=== PATIENT | female | born 1955 | race Two or more races ===

== ENCOUNTER 2019-12-27 13:34 | Outpatient (REF) | payer MEDICARE, MEDICAID, SELFPAY | END 2019-12-27 13:35 | disposition home or self-care (01) | LOC: HO.LAB 13:34 | PROVIDERS: PCP Internal Medicine; Visit Provider Internal Medicine | DX: Z20.828 Contact with and (suspected) exposure to other viral communicable diseases (principal) | CPT/HCPCS: C9803; U0003 ==

== ENCOUNTER 2020-02-15 14:03 | Outpatient (REF) | payer MEDICARE, MEDICAID, SELFPAY | END 2020-02-15 14:04 | disposition home or self-care (01) | LOC: HO.LAB 14:03 | PROVIDERS: Visit Provider Internal Medicine | DX: Z20.828 Contact with and (suspected) exposure to other viral communicable diseases (principal) | CPT/HCPCS: 36415; C9803; U0003 ==

== ENCOUNTER 2021-02-26 09:22 | Outpatient (REF) | payer MEDICARE, MEDICAID, SELFPAY ==
[2021-02-26 11:13] LABS: Estimated Average Glucose 237 mg/dL; Hemoglobin A1c % 9.9 %
[2021-02-26 12:27] LABS: Free T4 (Free Thyroxine) 1.12 ng/dL (0.71-1.85); Thyroid Stimulating Hormone 0.19 uIU/mL (0.32-4.0)
[2021-02-26 12:35] LABS: Alanine Aminotransferase 18 U/L (0-31); Albumin Level 3.9 g/dL (3.5-5.0); Alkaline Phosphatase 143 U/L (39-117); Anion Gap 16 (12-20); Aspartate Amino Transferase 16 U/L (5-31); Bilirubin Total 0.3 mg/dL (0.0-1.0); Blood Urea Nitrogen 12 mg/dL (9-16); Calcium 9.8 mg/dL (8.4-10.2); Carbon Dioxide 26 mmol/L (22-29); Chloride 97 mmol/L (96-108); Cholesterol 233 mg/dL; Estimated Glomerular Filt Rate 59; HDL Cholesterol 46 mg/dL; LDL Cholesterol Calculated 162 mg/dl; Potassium 4.1 mmol/L (3.3-5.1); Sodium 135 mmol/L (135-145); Total Protein 7.7 g/dL (6.5-8.0); Triglycerides 126 mg/dL
[2021-02-26 13:51] LABS: Glucose Fasting 464 mg/dL (60-99)
== END 2021-02-26 09:23 | disposition home or self-care (01) ==
LOC: HO.MANLDS 09:22
PROVIDERS: PCP Internal Medicine; Visit Provider Internal Medicine
DX: E03.9 Hypothyroidism, unspecified (principal); E11.9 Type 2 diabetes mellitus without complications
CPT/HCPCS: 36415; 80053; 80061; 83036; 84439; 84443

== ENCOUNTER 2021-02-27 13:47 | Outpatient (REF) | payer MEDICARE, MEDICAID, SELFPAY ==
[2021-02-27 18:35] LABS: Creatinine Urine 30.21 mg/dL; Microalbumin Urine < 5.0 mg/L
== END 2021-02-27 13:48 | disposition home or self-care (01) ==
LOC: HO.MANLDS 13:47
PROVIDERS: PCP Internal Medicine; Visit Provider Internal Medicine
DX: E03.9 Hypothyroidism, unspecified (principal); E11.9 Type 2 diabetes mellitus without complications
CPT/HCPCS: 82043

== ENCOUNTER 2021-07-09 09:52 | Outpatient (REF) | payer MEDICARE, MEDICAID, SELFPAY ==
[2021-07-09 10:53] LABS: Estimated Average Glucose 235 mg/dL; Hemoglobin A1c % 9.8 %
[2021-07-09 11:13] LABS: Alanine Aminotransferase 18 U/L (0-31); Albumin Level 3.8 g/dL (3.5-5.0); Alkaline Phosphatase 141 U/L (39-117); Anion Gap 13 (12-20); Aspartate Amino Transferase 14 U/L (5-31); Bilirubin Total 0.3 mg/dL (0.0-1.0); Blood Urea Nitrogen 14 mg/dL (9-16); Calcium 9.3 mg/dL (8.4-10.2); Carbon Dioxide 26 mmol/L (22-29); Chloride 101 mmol/L (96-108); Cholesterol 234 mg/dL; Estimated Glomerular Filt Rate 60; Glucose Random 404 mg/dL (60-115); HDL Cholesterol 45 mg/dL; LDL Cholesterol Calculated 155 mg/dl; Potassium 4.3 mmol/L (3.3-5.1); Sodium 136 mmol/L (135-145); Total Protein 7.2 g/dL (6.5-8.0); Triglycerides 173 mg/dL
[2021-07-09 11:31] LABS: Free T4 (Free Thyroxine) 1.04 ng/dL (0.71-1.85); Thyroid Stimulating Hormone 2.06 uIU/mL (0.32-4.0)
== END 2021-07-09 09:53 | disposition home or self-care (01) ==
LOC: HO.LAB 09:52
PROVIDERS: PCP Internal Medicine; Visit Provider Internal Medicine
DX: E11.9 Type 2 diabetes mellitus without complications (principal); E03.9 Hypothyroidism, unspecified
CPT/HCPCS: 36415; 80053; 80061; 83036; 84439; 84443

== ENCOUNTER 2021-10-30 15:50 | Outpatient (REF) | payer MEDICARE, MEDICAID, SELFPAY ==
[2021-10-30 18:21] LABS: MANUAL DIFF FLAG NO
[2021-10-30 18:25] LABS: Basophils Absolute Auto 0.1 X10*3/uL (0.0-0.2); Basophils Percent Auto 0.6 % (0-2); Eosinophils Absolute Auto 0.4 X10*3/uL (0.0-0.4); Eosinophils Percent Auto 4.2 % (0-4); Hematocrit 44.3 % (37.0-47.0); Hemoglobin 12.5 g/dl (12.0-16.0); Imm Gran Abs Auto 0.04 X10*3/uL (0.00-0.03); Imm Gran Pct Auto 0.4 % (0.0-0.4); Lymphocytes Absolute Auto 2.6 X10*3/uL (1.2-4.9); Lymphocytes Percent Auto 25.2 % (20-40); Mean Corpuscular HGB Conc 28.2 g/dl (31.0-35.0); Mean Corpuscular Hemoglobin 22.1 pg (27.0-33.0); Mean Corpuscular Volume 78.3 fL (80.0-98.0); Mean Platelet Volume 10.8 fL (9.4-12.3); Monocytes Absolute Auto 0.6 X10*3/uL (0.1-1.2); Monocytes Percent Auto 6.2 % (2-11); Neutrophils Absolute Auto 6.6 x10*3/uL (2.0-8.3); Neutrophils Percent Auto 63.4 % (45-73); Platelet Count 369 X10*3/uL (160-400); Red Blood Count 5.66 X10*6/uL (4.20-5.50); Red Cell Distribution Width 17.7 % (11.0-16.0); White Blood Count 10.4 X10*3/uL (4.8-10.8)
[2021-10-30 18:36] LABS: Alanine Aminotransferase 18 U/L (0-31); Albumin Level 4.1 g/dL (3.5-5.0); Alkaline Phosphatase 133 U/L (39-117); Anion Gap 17 (12-20); Aspartate Amino Transferase 18 U/L (5-31); Bilirubin Total 0.2 mg/dL (0.0-1.0); Blood Urea Nitrogen 11 mg/dL (9-16); Calcium 9.5 mg/dL (8.4-10.2); Carbon Dioxide 27 mmol/L (22-29); Chloride 102 mmol/L (96-108); Estimated Glomerular Filt Rate > 60; Glucose Random 170 mg/dL (60-115); Potassium 4.2 mmol/L (3.3-5.1); Sodium 142 mmol/L (135-145); Total Protein 7.6 g/dL (6.5-8.0)
[2021-10-30 19:58] LABS: Erythrocyte Sedimentation Rate 34 MM/HR (0-20)
[2021-10-31 07:44] LABS: Estimated Average Glucose 206 mg/dL; Hemoglobin A1c % 8.8 %
== END 2021-10-30 15:51 | disposition home or self-care (01) ==
LOC: HO.MANLDS 15:50
PROVIDERS: Visit Provider Internal Medicine
DX: R10.9 Unspecified abdominal pain (principal); E11.9 Type 2 diabetes mellitus without complications
CPT/HCPCS: 36415; 80053; 83036; 85025; 85652

== ENCOUNTER 2022-01-01 12:54 | Outpatient (REF) | payer MEDICARE, MEDICAID, SELFPAY ==
[2022-01-01 17:37] LABS: CT PCR NOT DETECTED (Not Detect.); NG PCR NOT DETECTED (Not Detect.)
== END 2022-01-01 12:55 | disposition home or self-care (01) ==
LOC: HO.LNP 12:54
PROVIDERS: Visit Provider Obstetrics & Gynecology
DX: R10.2 Pelvic and perineal pain (principal); R31.29 Other microscopic hematuria
CPT/HCPCS: 81003; 87086; 87491; 87591; 99202

== ENCOUNTER → 2022-01-15 11:18 | Outpatient (BNVA) | payer MEDICARE, MEDICAID, SELFPAY | PROVIDERS: PCP Internal Medicine; Visit Provider Obstetrics & Gynecology | DX: R31.29 Other microscopic hematuria (principal) | CPT/HCPCS: 99212 ==

== ENCOUNTER 2022-01-23 10:57 | Outpatient (REF) | payer MEDICARE, MEDICAID, SELFPAY ==
--- NOTE | ~2022-01-23 | US_ITS ---
EXAMINATION: US PELVIS CLINICAL INFORMATION: Pelvic and perineal pain COMPARISON: None TECHNIQUE: Ultrasound of the pelvis is performed using both transabdominal and transvaginal transducers along with Doppler. Transvaginal imaging is performed due to inadequate visualization transabdominally. FINDINGS: UTERUS: The uterus is anteverted, anteflexed and measures 5.8 x 2.6 x 2.7 cm. The double wall endometrial thickness is 0.9 x 1.3 cm. Small amount of fluid versus heterogeneous endometrium seen in the endometrial canal. The uterus is smooth in contour and has normal myometrial echogenicity. No visible fibroid. There are small nabothian cysts in the cervix. ADNEXA: The left ovary is visualized There is normal color flow to left adnexa. There is no ovarian torsion. There is no pelvic ascites or fluid collection. The right ovary is not visualized. The left ovary measures 1.6 x 2.3 x 1.3 cm and volume 2.5 mL. It appears unremarkable. US/US pelvic and transvaginal IMPRESSION: 1. Small nabothian cysts in the cervix. 2. The uterus is unremarkable. 3. The left ovary is unremarkable. The right ovary is not seen. 4. There is no free fluid in the cul-de-sac.
== END 2022-01-23 10:58 | disposition home or self-care (01) ==
LOC: HO.US 10:57
PROVIDERS: Visit Provider Obstetrics & Gynecology
DX: R10.2 Pelvic and perineal pain (principal)
CPT/HCPCS: 76830; 76856

== ENCOUNTER → 2022-02-17 14:13 | Outpatient (BNVA) | payer MEDICARE, MEDICAID, SELFPAY | PROVIDERS: PCP Internal Medicine; Visit Provider Obstetrics & Gynecology | DX: R10.2 Pelvic and perineal pain (principal) | CPT/HCPCS: 99212 ==

== ENCOUNTER 2022-03-15 18:37 | Inpatient (IN) | payer MEDICARE, MEDICAID, SELFPAY ==
--- NOTE | ~2022-03-15 | CT_ITS ---
EXAMINATION: CT CHEST, ABDOMEN AND PELVIS WITHOUT CONTRAST CLINICAL INFORMATION: Abdominal pain with question of colitis, low back pain COMPARISON: CT chest 09/05/2016 TECHNIQUE: Multidetector volumetric imaging was performed from the thoracic inlet through the pubic symphysis without IV contrast. Sagittal and coronal reformatted images were obtained on the technologist's workstation. This CT examination was performed using dose optimization techniques as appropriate, variously including the following: *Automated exposure control *Adjustment of mA and/or kV according to patient size (this includes techniques or standardized protocols for targeted exams where dose is matched to indication/reason for exam; i.e. extremities or head) *Use of iterative reconstruction technique DLP: 863 mGy-cm FINDINGS: CHEST: Lung: Dependent right basilar groundglass changes/atelectasis is present. There is a 7 mm nodule present in the superior segment of the left lower lobe (7:196) along with a smaller 2 mm subpleural nodule in the left lower lobe (7:264). The time of the 2017 CT scan these the smaller nodule was unchanged at 2 mm (prior 3:388) whereas the larger nodule measured only 4 mm (3:304). Mediastinum: The mediastinum is normal. The central vascular structures are unremarkable although marked motion artifact obscures detail. No hilar or mediastinal lymphadenopathy. No significant coronary calcification present Pericardium/Pleura: No significant effusion. No pleural mass or thickening. Chest Wall/Axilla: Axillary lymph nodes are present without adenopathy. ABDOMEN/PELVIS: Peritoneal Space: No significant free air or free fluid identified. Liver, Gallbladder, Biliary Tree: Liver is normal in size but extremely heterogeneous in attenuation with a large portion of the right lobe being low-attenuation at 26 Hounsfield units whereas the left lobe of the liver measures 50 Hounsfield units. Status post cholecystectomy Pancreas: Unremarkable Spleen: Unremarkable Adrenal Glands: Unremarkable Kidneys and Ureters: The kidneys are normal in size, shape, and attenuation. 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 No renal masses are seen. No hydronephrosis, hydroureter, or calculi seen. No perinephric stranding. Bladder: Unremarkable Gastrointestinal Tract: The small and large bowel are unremarkable. The appendix is unremarkable. Abdominal Wall: No significant hernia is appreciated. Lymph Nodes: No retroperitoneal lymphadenopathy. Vascular: The aorta appears of normal caliber but with calcific plaque present involving the aorta and iliofemoral vessels.. The IVC appears unremarkable. PELVIC VISCERA: The uterus and adnexa are unremarkable. OSSEUS STRUCTURES: Mild degenerative changes are noted in the spine. No bony destructive lesions are seen. CT/CT abdomen pelvis wo IV con IMPRESSION: 1. A definitive cause for the patient's upper abdominal and low back pain has not been found. 2. Incidental note made of a 7 mm left lower lobe lung nodule and a 2 mm left lower lobe nodule. A 7 mm nodule measured 4 mm in 2017. 3. Markedly heterogeneous liver with asymmetric fatty infiltration. 4. Other incidental findings as described above including cholecystectomy, nonrotated right kidney and degenerative changes in the spine. 2017 Fleischner Society Recommendations for Lung Nodule(s): Follow-Up based on size (average of long- and short-axis diameters). Use most suspicious nodule for followup. Single Solid lung nodule 6-8 mm: In a low-risk patient, recommend a non-contrast Chest CT at 6-12 months, then consider an additional non-contrast Chest CT at 18-24 months. In a high-risk patient, recommend a non-contrast Chest CT at 6-12 months, then another non-contrast Chest CT at 18-24 months. These guidelines do not apply to patients younger than 35 years, immunocompromised patients, and patients with cancer. F/u in patients with significant comorbidities as clinically warranted. For lung cancer screening, adhere to Lung-RADS guidelines. Reference: Radiology. 2017 Dixon; 284(1):228-243
[2022-03-15 18:41] VITALS: BP 157/67; PULSE 135; RESP 20; TEMP 36.9; O2SAT 98; BMI 25.0
[2022-03-15 18:56] LABS: MANUAL DIFF FLAG NO
[2022-03-15 18:59] LABS: Basophils Percent Auto 0.1 % (0-2); Hematocrit 43.8 % (37.0-47.0); Hemoglobin 12.4 g/dl (12.0-16.0); Imm Gran Abs Auto 0.04 X10*3/uL (0.00-0.03); Imm Gran Pct Auto 0.3 % (0.0-0.4); Lymphocytes Percent Auto 6.3 % (20-40); Mean Corpuscular HGB Conc 28.3 g/dl (31.0-35.0); Mean Corpuscular Hemoglobin 21.2 pg (27.0-33.0); Mean Corpuscular Volume 74.9 fL (80.0-98.0); Mean Platelet Volume 9.9 fL (9.4-12.3); Monocytes Absolute Auto 0.3 X10*3/uL (0.1-1.2); Monocytes Percent Auto 2.2 % (2-11); Neutrophils Absolute Auto 13.8 x10*3/uL (2.0-8.3); Neutrophils Percent Auto 91.1 % (45-73); Platelet Count 455 X10*3/uL (160-400); Red Blood Count 5.85 X10*6/uL (4.20-5.50); Red Cell Distribution Width 18.6 % (11.0-16.0); SCAN SMEAR FLAG 1; White Blood Count 15.1 X10*3/uL (4.8-10.8)
[2022-03-15 19:23] LABS: Alanine Aminotransferase 22 U/L (0-31); Albumin Level 3.9 g/dL (3.5-5.0); Alkaline Phosphatase 129 U/L (39-117); Anion Gap 20 (12-20); Aspartate Amino Transferase 22 U/L (5-31); Bilirubin Total 0.5 mg/dL (0.0-1.0); Blood Urea Nitrogen 13 mg/dL (9-16); Calcium 9.1 mg/dL (8.4-10.2); Carbon Dioxide 19 mmol/L (22-29); Chloride 103 mmol/L (96-108); Creatinine Clr Calc Pharmacy 58.7; Estimated Glomerular Filt Rate > 60; Glucose Random 263 mg/dL (60-115); Potassium 4.3 mmol/L (3.3-5.1); Sodium 138 mmol/L (135-145)
[2022-03-15 19:41] LABS: Influenza A PCR NEGATIVE (Negative); Influenza B PCR NEGATIVE (Negative); Resp Syncy Virus RNA Qual PCR NEGATIVE (Negative); SARS COV2 PCR INHOUSE NEGATIVE (Negative)
--- NOTE | 2022-03-15 21:27 | ED_ITS ---
HPI - General Adult General Chief complaint: General Medical Stated complaint: fever,vomiting ,diarrhea Time Seen by Provider: 03/15/22 21:27 Source: patient and family Mode of arrival: ambulatory Limitations: no limitations History of Present Illness HPI narrative: 67-year-old female presents for almost 2 days of abdominal pain, nausea, vomiting, diarrhea, fever and body aches. Onset (ago): day(s) (2) Location: abdomen Radiation: back Severity: severe Severity scale (1-10): 9 Quality: aching Pain Consistency: constant Relieving factors: none Exacerbating factors: eating and movement Associated symptoms: fever/chills and nausea/vomiting Treatments prior to arrival: none Related Data Home Medications Medication Instructions Recorded Confirmed blood sugar diagnostic (FreeStyle #10 ea 01/01/22 Lite Strips) buspirone 10 mg tablet 10 mg PO BID 01/01/22 cyclobenzaprine 10 mg tablet 10 mg PO BID PRN 01/01/22 duloxetine 60 mg capsule,delayed 60 mg PO DAILY 01/01/22 release glimepiride 2 mg tablet 2 mg PO DAILY 01/01/22 insulin glargine 100 unit/mL (3 unit subcut 01/01/22 mL) subcutaneous pen (Lantus Solostar U-100 Insulin) insulin lispro 100 unit/mL subcut 01/01/22 subcutaneous pen (Humalog KwikPen (U-100) Insulin) lancets 28 gauge (FreeStyle #100 ea 01/01/22 Lancets) levothyroxine 125 mcg tablet 125 mcg PO DAILY 01/01/22 lisinopril 40 mg tablet 40 mg PO DAILY 01/01/22 lorazepam 1 mg tablet 0.5 - 1 mg PO BEDTIME PRN 01/01/22 pen needle, diabetic 31 gauge x #1,200 ea 01/01/22/ (BD Ultra-Fine Short Pen Needle) tramadol 50 mg tablet 50 - 100 mg PO QID PRN 01/01/22 Allergies Allergy/AdvReac Type Severity Reaction Status Date / Time No Known Allergies Allergy Verified 02/17/22 14:25 [No Known Allergies*] Review of Systems Review of Systems: Constitutional: Positive Fever, positive Chills Cardiovascular: No Chest Pain, No SOB Respiratory: No Cough, No Dyspnea Gastrointestinal: Positive Nausea, positive Vomiting, positive Diarrhea, positive abdominal Pain Genitourinary: No Dysuria, No Hematuria Musculoskeletal: positive back pain, No Myalgias, No Joint Swelling Skin: No Skin lacerations, No rash Neuro: No Weakness, No Numbness, No Dizziness, No Headache Yes all other systems are reviewed and are negative [facility] Past Medical History Attestation statement: The following information was validated with the patient. Source: old records reviewed Medical History Anxiety Depression Fibromyalgia Nerve damage Surgical History Hx of cholecystectomy Family History Family History Mother Uterine cancer Sister Breast cancer Social History Social History Advance Directives: No Physical Exam ED Vital Signs: Vital Signs - 24 hr 03/15/22 18:41 03/15/22 22:08 03/15/22 23:13 Temperature 98.4 F 98.9 F 98.9 F Pulse Rate 135 H 98 93 Respiratory Rate 20 16 20 Blood Pressure 157/67 H 152/61 H 108/54 L Pulse Oximetry 98 100 99 Oxygen Delivery Method Room Air Room Air Room Air 03/15/22 23:43 03/15/22 23:57 03/16/22 00:13 Temperature 98.7 F 98.9 F 98.9 F Pulse Rate 92 92 92 Respiratory Rate 18 22 H 16 Blood Pressure 125/56 L 116/54 L 113/49 L Pulse Oximetry 99 98 98 Oxygen Delivery Method Room Air Room Air Room Air 03/16/22 00:14 Temperature Pulse Rate 97 Respiratory Rate 15 Blood Pressure 119/54 L Pulse Oximetry 97 Oxygen Delivery Method Room Air BMI result Body Mass Index 25.0 Appearance: Alert. Oriented X3. Moderate distress. Eyes: Pupils equal, round and reactive to light. ENT: Pharynx normal. Dry mucous membranes. Neck: Normal inspection. Neck supple. CVS: Tachycardic heart rate and rhythm. Respiratory: No respiratory distress. Breath sounds normal. Abdomen: Soft and left upper quadrant left lower quadrant tenderness to palpation. No distention or rigidity. Skin: Skin warm and dry. Normal skin color. Normal skin turgor. Extremities: No lower extremity edema. Moves all extremities against resistance. Gait not assessed for safety. Neuro: No motor deficit. No sensory deficit. Cranial nerves 2-12 intact. Course Course Course Narrative: 67-year-old female presents with nausea vomiting diarrhea fevers and body aches since Thursday. She is unable to tolerate food in p.o. fluids. States to be in 10/10 left upper quadrant abdominal pain radiating to her back. She is an insulin-dependent diabetic, takes levothyroxine, lisinopril for hypertension, Ativan for anxiety and tramadol for pain management. Patient is tachycardic at 135 on arrival, is afebrile, and appears nontoxic. O2 sat 98% on room air. Abdominal tenderness to left upper quadrant, order for CT scan to rule out pancreatitis, hydronephrosis, pyelonephritis is, acute abdomen, pneumonia. Labs indicated elevated white count of 15.1, no source of infection identified at this time. Order for fluids and ceftriaxone. Urinalysis pending. 22:04 lactic acid elevated at 4.3, sepsis alert called at this time. 2 L of fluid given, which equals 30 milliliters/kilogram fluid resuscitation of 1800 mL of fluid. Discussion with hospitalist regarding plan of care to admit, CT scans are pending. Urinalysis pending. 00:38 CT scan abdomen pelvis chest negative for acute findings requiring emergent intervention. This patient had been admitted for viral gastroenteritis and lactic acidosis. Urinalysis is still pending. Medications Administered Discontinued Medications Generic Name Dose Route Start Last Admin Trade Name Freq PRN Reason Stop Dose Admin Sodium Chloride 1,000 mls @ 999 mls/hr 03/15/22 21:30 03/15/22 23:45 Ns IVCONT 03/15/22 22:30 Infused .Q1H1M OWEN Infusion Ceftriaxone Sodium 1 gm/ 50 mls @ 100 mls/hr 03/15/22 21:28 03/15/22 22:29 Sodium Chloride IV 03/15/22 21:57 Infused ONCE ONE Infusion Sodium Chloride 1,000 mls @ 999 mls/hr 03/15/22 21:30 03/15/22 23:45 Ns IVCONT 03/15/22 22:30 Infused .Q1H1M OWEN Infusion Ondansetron HCl 4 mg 03/15/22 21:28 03/15/22 22:13 Ondansetron Hcl 4 Mg/2 Ml Vial IVPUSH 03/15/22 21:29 4 mg ONCE ONE Administration Medical Decision Making Differential Diagnosis Differential Diagnoses: The differential diagnosis associated with the presentation includes Acute abdomen, viral gastroenteritis, obstruction, pneumonia, sepsis Admission/Observation Consideration of admission/observation: Escalation of care including admission/observation considered Plan of care is for admission Consult Healthcare Provider Management of the patient was discussed with: Hospitalist Lab Data MDM Lab Attestation statement: I reviewed the patient's lab results. 03/15/22 18:52 03/15/22 18:52 Labs: Lab Results 03/15/22 03/15/22 03/15/22 Range/Units 18:52 18:52 18:52 WBC 15.1 H (4.8-10.8) X10*3/uL RBC 5.85 H (4.20-5.50) X10*6/uL Hgb 12.4 (12.0-16.0) g/dl Hct 43.8 (37.0-47.0) % MCV 74.9 L (80.0-98.0) fL MCH 21.2 L (27.0-33.0) pg MCHC 28.3 L (31.0-35.0) g/dl RDW 18.6 H (11.0-16.0) % Plt Count 455 H (160-400) X10*3/uL MPV 9.9 (9.4-12.3) fL Immature Gran % (Auto) 0.3 (0.0-0.4) % Neut % (Auto) 91.1 H (45-73) % Lymph % (Auto) 6.3 L (20-40) % Henderson % (Auto) 2.2 (2-11) % Eos % (Auto) 0.0 (0-4) % Baso % (Auto) 0.1 (0-2) % Lymph # (Auto) 1.0 L (1.2-4.9) X10*3/uL Henderson # (Auto) 0.3 (0.1-1.2) X10*3/uL Eos # (Auto) 0.0 (0.0-0.4) X10*3/uL Baso # (Auto) 0.0 (0.0-0.2) X10*3/uL Abs Immat Gran (auto) 0.04 H (0.00-0.03) X10*3/uL Absolute Neuts (auto) 13.8 H (2.0-8.3) x10*3/uL Absolute Nucleated RBC 0.000 (0.0-0.012) X10*3/uL Nucleated RBC % (auto) 0.0 (0.0-0.2) /100WBC Sodium 138 (135-145) mmol/L Potassium 4.3 (3.3-5.1) mmol/L Chloride 103 (96-108) mmol/L Carbon Dioxide 19 L (22-29) mmol/L Anion Gap 20 (12-20) BUN 13 (9-16) mg/dL Creatinine 0.86 (0.5-1.4) mg/dL Estim Creat Clear Calc 58.7 Estimated GFR > 60 Random Glucose 263 H (60-115) mg/dL Lactic Acid (0.5-2.0) mmol/L Lactic Acid F/U @ 2Hr (0.5-2.0) mmol/L Calcium 9.1 (8.4-10.2) mg/dL Magnesium (1.6-2.6) mg/dL Total Bilirubin 0.5 (0.0-1.0) mg/dL AST 22 (5-31) U/L ALT 22 (0-31) U/L Alkaline Phosphatase 129 H (39-117) U/L Troponin I High Sens (<3.5-17.0) ng/L Total Protein 7.0 (6.5-8.0) g/dL Albumin 3.9 (3.5-5.0) g/dL Influenza Type A (PCR) NEGATIVE (Negative) Influenza Type B (PCR) NEGATIVE (Negative) RSV RNA Qual (PCR) NEGATIVE (Negative) SARS-CoV-2 RNA (RT-PCR) NEGATIVE (Negative) 03/15/22 03/15/22 03/15/22 Range/Units 21:40 21:40 21:40 WBC (4.8-10.8) X10*3/uL RBC (4.20-5.50) X10*6/uL Hgb (12.0-16.0) g/dl Hct (37.0-47.0) % MCV (80.0-98.0) fL MCH (27.0-33.0) pg MCHC (31.0-35.0) g/dl RDW (11.0-16.0) % Plt Count (160-400) X10*3/uL MPV (9.4-12.3) fL Immature Gran % (Auto) (0.0-0.4) % Neut % (Auto) (45-73) % Lymph % (Auto) (20-40) % Henderson % (Auto) (2-11) % Eos % (Auto) (0-4) % Baso % (Auto) (0-2) % Lymph # (Auto) (1.2-4.9) X10*3/uL Henderson # (Auto) (0.1-1.2) X10*3/uL Eos # (Auto) (0.0-0.4) X10*3/uL Baso # (Auto) (0.0-0.2) X10*3/uL Abs Immat Gran (auto) (0.00-0.03) X10*3/uL Absolute Neuts (auto) (2.0-8.3) x10*3/uL Absolute Nucleated RBC (0.0-0.012) X10*3/uL Nucleated RBC % (auto) (0.0-0.2) /100WBC Sodium (135-145) mmol/L Potassium (3.3-5.1) mmol/L Chloride (96-108) mmol/L Carbon Dioxide (22-29) mmol/L Anion Gap (12-20) BUN (9-16) mg/dL Creatinine (0.5-1.4) mg/dL Estim Creat Clear Calc Estimated GFR Random Glucose (60-115) mg/dL Lactic Acid 4.3 H* (0.5-2.0) mmol/L Lactic Acid F/U @ 2Hr (0.5-2.0) mmol/L Calcium (8.4-10.2) mg/dL Magnesium 1.7 (1.6-2.6) mg/dL Total Bilirubin (0.0-1.0) mg/dL AST (5-31) U/L ALT (0-31) U/L Alkaline Phosphatase (39-117) U/L Troponin I High Sens < 3.5 (<3.5-17.0) ng/L Total Protein (6.5-8.0) g/dL Albumin (3.5-5.0) g/dL Influenza Type A (PCR) (Negative) Influenza Type B (PCR) (Negative) RSV RNA Qual (PCR) (Negative) SARS-CoV-2 RNA (RT-PCR) (Negative) 03/15/22 Range/Units 23:55 WBC (4.8-10.8) X10*3/uL RBC (4.20-5.50) X10*6/uL Hgb (12.0-16.0) g/dl Hct (37.0-47.0) % MCV (80.0-98.0) fL MCH (27.0-33.0) pg MCHC (31.0-35.0) g/dl RDW (11.0-16.0) % Plt Count (160-400) X10*3/uL MPV (9.4-12.3) fL Immature Gran % (Auto) (0.0-0.4) % Neut % (Auto) (45-73) % Lymph % (Auto) (20-40) % Henderson % (Auto) (2-11) % Eos % (Auto) (0-4) % Baso % (Auto) (0-2) % Lymph # (Auto) (1.2-4.9) X10*3/uL Henderson # (Auto) (0.1-1.2) X10*3/uL Eos # (Auto) (0.0-0.4) X10*3/uL Baso # (Auto) (0.0-0.2) X10*3/uL Abs Immat Gran (auto) (0.00-0.03) X10*3/uL Absolute Neuts (auto) (2.0-8.3) x10*3/uL Absolute Nucleated RBC (0.0-0.012) X10*3/uL Nucleated RBC % (auto) (0.0-0.2) /100WBC Sodium (135-145) mmol/L Potassium (3.3-5.1) mmol/L Chloride (96-108) mmol/L Carbon Dioxide (22-29) mmol/L Anion Gap (12-20) BUN (9-16) mg/dL Creatinine (0.5-1.4) mg/dL Estim Creat Clear Calc Estimated GFR Random Glucose (60-115) mg/dL Lactic Acid (0.5-2.0) mmol/L Lactic Acid F/U @ 2Hr 1.9 (0.5-2.0) mmol/L Calcium (8.4-10.2) mg/dL Magnesium (1.6-2.6) mg/dL Total Bilirubin (0.0-1.0) mg/dL AST (5-31) U/L ALT (0-31) U/L Alkaline Phosphatase (39-117) U/L Troponin I High Sens (<3.5-17.0) ng/L Total Protein (6.5-8.0) g/dL Albumin (3.5-5.0) g/dL Influenza Type A (PCR) (Negative) Influenza Type B (PCR) (Negative) RSV RNA Qual (PCR) (Negative) SARS-CoV-2 RNA (RT-PCR) (Negative) Independent Interpretation I performed an independent interpretation of an: EKG and CT Scan Interpretation: Normal sinus rhythm T wave abnormality, consider lateral ischemia Abnormal ECG When compared with ECG of 15-FEB-2019 10:42, T wave inversion now evident in Anterolateral leads Vent. rate 100 BPM AL interval 156 ms QRS duration 78 ms QT/QTc 388/500 ms P-R-T axes 38 31 102 15-MAR-2022 21:55:28 Radiology Impression Discussion of test interpretation with radiology: I have reviewed the radiologist's reading. Radiologist Impression: EXAMINATION: CT CHEST, ABDOMEN AND PELVIS WITHOUT CONTRAST CLINICAL INFORMATION: Abdominal pain with question of colitis, low back pain COMPARISON: CT chest 09/05/2016 TECHNIQUE: Multidetector volumetric imaging was performed from the thoracic inlet through the pubic symphysis without IV contrast. Sagittal and coronal reformatted images were obtained on the technologist's workstation. This CT examination was performed using dose optimization techniques as appropriate, variously including the following: *Automated exposure control *Adjustment of mA and/or kV according to patient size (this includes techniques or standardized protocols for targeted exams where dose is matched to indication/reason for exam; i.e. extremities or head) *Use of iterative reconstruction technique DLP: 863 mGy-cm FINDINGS: CHEST: Lung: Dependent right basilar groundglass changes/atelectasis is present. There is a 7 mm nodule present in the superior segment of the left lower lobe (7:196) along with a smaller 2 mm subpleural nodule in the left lower lobe (7:264). The time of the 2017 CT scan these the smaller nodule was unchanged at 2 mm (prior 3:388) whereas the larger nodule measured only 4 mm (3:304). Mediastinum: The mediastinum is normal. The central vascular structures are unremarkable although marked motion artifact obscures detail. No hilar or mediastinal lymphadenopathy. No significant coronary calcification present Pericardium/Pleura: No significant effusion. No pleural mass or thickening. Chest Wall/Axilla: Axillary lymph nodes are present without adenopathy. ABDOMEN/PELVIS: Peritoneal Space: No significant free air or free fluid identified. Liver, Gallbladder, Biliary Tree: Liver is normal in size but extremely heterogeneous in attenuation with a large portion of the right lobe being low-attenuation at 26 Hounsfield units whereas the left lobe of the liver measures 50 Hounsfield units. Status post cholecystectomy Pancreas: Unremarkable Spleen: Unremarkable Adrenal Glands: Unremarkable Kidneys and Ureters: The kidneys are normal in size, shape, and attenuation. 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 No renal masses are seen. No hydronephrosis, hydroureter, or calculi seen. No perinephric stranding. Bladder: Unremarkable Gastrointestinal Tract: The small and large bowel are unremarkable. The appendix is unremarkable. Abdominal Wall: No significant hernia is appreciated. Lymph Nodes: No retroperitoneal lymphadenopathy. Vascular: The aorta appears of normal caliber but with calcific plaque present involving the aorta and iliofemoral vessels.. The IVC appears unremarkable. PELVIC VISCERA: The uterus and adnexa are unremarkable. OSSEUS STRUCTURES: Mild degenerative changes are noted in the spine. No bony destructive lesions are seen. CT/CT chest wo IV con IMPRESSION: 1.? A definitive cause for the patient's upper abdominal and low back pain has not been found. 2.? Incidental note made of a 7 mm left lower lobe lung nodule and a 2 mm left lower lobe nodule. A 7 mm nodule measured 4 mm in 2017. 3.? Markedly heterogeneous liver with asymmetric fatty infiltration. 4.? Other incidental findings as described above including cholecystectomy, nonrotated right kidney and degenerative changes in the spine. ? 2017 Fleischner Society Recommendations for Lung Nodule(s): Follow-Up based on size (average of long- and short-axis diameters). Use most suspicious nodule for followup. ? Single Solid lung nodule 6-8 mm:? In a low-risk patient, recommend a non-contrast Chest CT at 6-12 months, then consider an additional non-contrast Chest CT at 18-24 months.? In a high-risk patient, recommend a non-contrast Chest CT at 6-12 months, then another non-contrast Chest CT at 18-24 months.? ? These guidelines do not apply to patients younger than 35 years, immunocompromised patients, and patients with cancer. F/u in patients with significant comorbidities as clinically warranted. For lung cancer screening, adhere to Lung-RADS guidelines.? Reference:? Radiology. 2017 Aug; 284(1):228-243 Independent Historian Clinical information obtained from an independent historian. History obtained from or confirmed by: Other (Daughter) External Record Review External record reviewed: Outpatient record and Prior outpatient labs Prescription Management I considered prescription management with: Antibiotic Chronic Conditions Patient?s care impacted by: Diabetes and Hypertension Critical Care Time Critical Care Time Critical Care Time: Yes Total Critical Care Time: 45 Attestation: I have personally provided critical care time exclusive of time spent on separately billable procedures. Time includes review of laboratory data, radiology results, discussion with consultants, and monitoring for potential decompensation. Interventions were performed as documented. Discharge Plan Discharge Patient Disposition: Admitted As Inpatient
--- NOTE | 2022-03-15 21:28 | ECG_ITS ---
Test Reason : ABDOMINAL PAIN Blood Pressure : / mmHG Vent. Rate : 100 BPM Atrial Rate : 100 BPM P-R Int : 156 ms QRS Dur : 078 ms QT Int : 388 ms P-R-T Axes : 038 031 102 degrees QTc Int : 500 ms Normal sinus rhythm T wave abnormality, consider lateral ischemia Abnormal ECG When compared with ECG of 15-FEB-2019 10:42, T wave inversion now evident in Anterolateral leads Referred By: Felisha Clemens Electronically Signed By:Omid Ramsey
[2022-03-15] MEDS: 0.9 % Sodium Chloride 1,000 ML 999 ML IVCONT ×2 (21:49→21:50)
[2022-03-15] MEDS: cefTRIAXone sodium 1 GM in 0.9 % Sodium Chloride 50 ML IV (21:50)
[2022-03-15 22:00] LABS: Magnesium 1.7 mg/dL (1.6-2.6)
[2022-03-15 22:05] LABS: Lactic Acid 4.3 mmol/L (0.5-2.0)
[2022-03-15 22:08] VITALS: BP 152/61; PULSE 98; RESP 16; TEMP 37.2; O2SAT 100
[2022-03-15] MEDS: ondansetron HCL 4 MG/2 ML VIAL IVPUSH (22:13)
[2022-03-15 22:31] LABS: Troponin-I High Sensitivity < 3.5 ng/L (<3.5-17.0)
[2022-03-15 23:13] VITALS: BP 108/54; PULSE 93; RESP 20; TEMP 37.2; O2SAT 99
[2022-03-15 23:43] VITALS: BP 125/56; PULSE 92; RESP 18; TEMP 37.1; O2SAT 99
[2022-03-15 23:44] LABS: Reflex Lactate? Lactic Acid Added
--- NOTE | 2022-03-15 23:48 | P.HPHOSP_ITS ---
History of Present Illness Date of Service: 03/16/22 Chief Complaint: Nausea/vomiting/diarrhea This is a 67-year-old female with pertinent history of insulin-dependent diabetes mellitus, essential hypertension, mood disorder, hypothyroidism who presents to the emergency department for evaluation of abdominal pain/ vomiting/diarrhea. Patient states she has been having persistent nausea, nonbloody emesis and watery diarrhea which has been persistent and started 24 hours prior to presentation. It started with epigastric discomfort, nonradiating, constant and without any relieving factors. Patient is unable to tolerate p.o. intake for the last 24 hours. No similar complaints in the past. Denies fever, chills, chest discomfort, palpitations, shortness of breath, changes in urinary habits. In the emergency department, patient was found to be septic. Imaging without acute abnormality Review of Systems Constitutional: Constitutional: Reports no additional constitutional complaints Cardiovascular: Cardiovascular: Reports no additional cardiovascular complaints Respiratory: Respiratory: Reports no additional respiratory complaints Gastrointestinal: Gastrointestinal: Reports abdominal pain, Reports diarrhea, Reports nausea and Reports vomiting PMFSH Medical History Anxiety Depression Fibromyalgia Nerve damage Family History Mother Uterine cancer Sister Breast cancer Surgical History Hx of cholecystectomy Social History Advance Directives: No Meds Allergies Allergy/AdvReac Type Severity Reaction Status Date / Time No Known Allergies Allergy Verified 02/17/22 14:25 [No Known Allergies*] Home Medications Medication Instructions Recorded Confirmed Last Taken Type blood sugar diagnostic (FreeStyle #10 ea 01/01/22 Unknown History Lite Strips) buspirone 10 mg tablet 10 mg PO BID 01/01/22 Unknown History cyclobenzaprine 10 mg tablet 10 mg PO BID PRN 01/01/22 Unknown History duloxetine 60 mg capsule,delayed 60 mg PO DAILY 01/01/22 Unknown History release glimepiride 2 mg tablet 2 mg PO DAILY 01/01/22 Unknown History insulin glargine 100 unit/mL (3 unit subcut 11/23/22 Unknown History mL) subcutaneous pen (Lantus Solostar U-100 Insulin) insulin lispro 100 unit/mL subcut 01/01/22 Unknown History subcutaneous pen (Humalog KwikPen (U-100) Insulin) lancets 28 gauge (FreeStyle #100 ea 01/01/22 Unknown History Lancets) levothyroxine 125 mcg tablet 125 mcg PO DAILY 01/01/22 Unknown History lisinopril 40 mg tablet 40 mg PO DAILY 01/01/22 Unknown History lorazepam 1 mg tablet 0.5 - 1 mg PO BEDTIME PRN 01/01/22 Unknown History pen needle, diabetic 31 gauge x #1,200 ea 01/01/22 Unknown History 06/24 (BD Ultra-Fine Short Pen Needle) tramadol 50 mg tablet 50 - 100 mg PO QID PRN 01/01/22 Unknown History Physical Exam Vital Signs and Narrative: Vital Signs: Last Vital Signs Temp 98.7 F 03/15/22 23:43 Pulse 92 03/15/22 23:43 Resp 18 03/15/22 23:43 BP 125/56 L 03/15/22 23:43 Pulse Ox 99 03/15/22 23:43 O2 Del Method 03/15/22 23:43 BMI result Body Mass Index 25.0 Elderly female lying in bed in no distress Neck supple, no JVD Regular rate and rhythm, S1-S2 heard Regular breath sounds bilaterally, no wheezing or crackles appreciated Abdomen soft nontender, no guarding, no rigidity Patient is awake, alert and oriented to self, place, time and person ; no focal motor deficit Psych: Normal mood No pedal edema Results Labs 03/15/22 18:52 03/15/22 18:52 Labs: Laboratory Results - last 24 hr 03/15/22 03/15/22 03/15/22 18:52 18:52 18:52 MCV 74.9 L MCH 21.2 L MCHC 28.3 L RDW 18.6 H Plt Count 455 H MPV 9.9 Immature Gran % (Auto) 0.3 Neut % (Auto) 91.1 H Lymph % (Auto) 6.3 L Humphreys % (Auto) 2.2 Eos % (Auto) 0.0 Baso % (Auto) 0.1 Lymph # (Auto) 1.0 L Humphreys # (Auto) 0.3 Eos # (Auto) 0.0 Baso # (Auto) 0.0 Abs Immat Gran (auto) 0.04 H Absolute Neuts (auto) 13.8 H Absolute Nucleated RBC 0.000 Nucleated RBC % (auto) 0.0 Anion Gap 20 Estim Creat Clear Calc 58.7 Estimated GFR > 60 Random Glucose 263 H Lactic Acid Calcium 9.1 Magnesium Total Bilirubin 0.5 AST 22 ALT 22 Alkaline Phosphatase 129 H Troponin I High Sens Total Protein 7.0 Albumin 3.9 Influenza Type A (PCR) NEGATIVE Influenza Type B (PCR) NEGATIVE RSV RNA Qual (PCR) NEGATIVE SARS-CoV-2 RNA (RT-PCR) NEGATIVE 03/15/22 03/15/22 03/15/22 21:40 21:40 21:40 MCV MCH MCHC RDW Plt Count MPV Immature Gran % (Auto) Neut % (Auto) Lymph % (Auto) Humphreys % (Auto) Eos % (Auto) Baso % (Auto) Lymph # (Auto) Humphreys # (Auto) Eos # (Auto) Baso # (Auto) Abs Immat Gran (auto) Absolute Neuts (auto) Absolute Nucleated RBC Nucleated RBC % (auto) Anion Gap Estim Creat Clear Calc Estimated GFR Random Glucose Lactic Acid 4.3 H* Calcium Magnesium 1.7 Total Bilirubin AST ALT Alkaline Phosphatase Troponin I High Sens < 3.5 Total Protein Albumin Influenza Type A (PCR) Influenza Type B (PCR) RSV RNA Qual (PCR) SARS-CoV-2 RNA (RT-PCR) Assessment and Plan (1) Viral gastroenteritis: Status: Acute Plan This is a 67-year-old female with pertinent history of insulin-dependent diabetes mellitus, essential hypertension, mood disorder, hypothyroidism who presents to the emergency department for evaluation of abdominal pain/vomiting/diarrhea. #. Sepsis due to viral gastroenteritis: Resuscitated with IV crystalloids in the ER. Lactic acid and blood culture obtained. Received IV Rocephin in the ER, hold off on further antibiotics. Obtaining stool studies. Imaging without acute abnormality #. Acute lactic acidosis in the setting of above. Resolved with fluid resuscitation #. Insulin-dependent diabetes mellitus with hyperglycemia: Continue basal bolus regimen. #. Essential hypertension: Hold antihypertensives in the setting of sepsis #. Mood disorder: Continue lorazepam #. Hypothyroidism: On Synthroid DVT prophylaxis: Lovenox 40 mg daily Full code Clear liquid diet. Advance as tolerated Admit as inpatient and anticipate 2 night admission in the setting of sepsis and until symptom resolution Time Spent With Patient Time: Total time managing care of this patient today ____ minutes. Quality Stroke Does the patient have a stroke diagnosis?: No VTE Prior VTE?: No VTE Risk Level:: Medical - moderate - high VTE Device Contraindication: Treatment Not Indicated VTE Drug Contraindication: N/A - Med Ordered
[2022-03-15 23:57] VITALS: BP 116/54; PULSE 92; RESP 22; TEMP 37.2; O2SAT 98
[2022-03-16] VITALS (8 sets, daily range): BP systolic 111–138; BP diastolic 49–75; PULSE 76–97; RESP 13–17; TEMP 36.8–37.4; O2SAT 93–999
[2022-03-16 00:16] LABS: ~Lactic Acid-LAB USE ONLY 1.9 mmol/L (0.5-2.0)
[2022-03-16 00:57] LABS: Lipase 28 U/L (8-78)
--- NOTE | 2022-03-16 00:57 | PC.NURSE ---
pt straight cathed per order, tolerated well
[2022-03-16 01:08] LABS: Thyroid Stimulating Hormone 0.03 uIU/mL (0.32-4.0)
[2022-03-16 01:10] LABS: Appearance Urine Clear; Color Urine Yellow; Glucose Urine UA >=1000 mg/dL (Negative); Leukocyte Esterase Urine Negative (Negative); Nitrite Urine Negative (Negative); PH 5.5 (5.0-9.0); Specific Gravity - Urine 1.015 (1.005-1.025); UMIC TRIGGER UACC YES; Urine Blood Negative (Negative); Urine Ketones Negative (Negative); Urine Protein 30 (1+) mg/dL (Neg-Trace)
[2022-03-16] MEDS: Insulin Glargine,Hum.rec.anlog 100 UNIT/ML 10 ML VIAL 40 UNIT SUBCUT ×2 (01:15→21:30)
--- NOTE | 2022-03-16 01:20 | PC.NURSE ---
pt alert and oriented, states she feels weak and has a headache
[2022-03-16 01:21] LABS: Bacteria Urine None Seen (None Seen); RBC Urine 0-2 /HPF (0-2); Squamous Epithelial Cell Urine 0-2 /HPF (0-2); WBC Urine 0-5 /HPF (0-5)
[2022-03-16] MEDS: Enoxaparin Sodium 40 MG/0.4 ML SYRINGE SUBCUT (01:28)
[2022-03-16] MEDS: Melatonin 3 MG TABLET 6 MG PO (01:49)
[2022-03-16 06:26] LABS: MANUAL DIFF FLAG NO
[2022-03-16 06:28] LABS: Basophils Percent Auto 0.2 % (0-2); Eosinophils Absolute Auto 0.1 X10*3/uL (0.0-0.4); Eosinophils Percent Auto 1.3 % (0-4); Hematocrit 36.5 % (37.0-47.0); Hemoglobin 10.5 g/dl (12.0-16.0); Imm Gran Abs Auto 0.03 X10*3/uL (0.00-0.03); Imm Gran Pct Auto 0.4 % (0.0-0.4); Lymphocytes Absolute Auto 1.3 X10*3/uL (1.2-4.9); Lymphocytes Percent Auto 16.3 % (20-40); Mean Corpuscular HGB Conc 28.8 g/dl (31.0-35.0); Mean Corpuscular Hemoglobin 21.6 pg (27.0-33.0); Mean Corpuscular Volume 75.1 fL (80.0-98.0); Monocytes Absolute Auto 0.5 X10*3/uL (0.1-1.2); Monocytes Percent Auto 6.4 % (2-11); Neutrophils Absolute Auto 6.2 x10*3/uL (2.0-8.3); Neutrophils Percent Auto 75.4 % (45-73); Platelet Count 316 X10*3/uL (160-400); Red Blood Count 4.86 X10*6/uL (4.20-5.50); Red Cell Distribution Width 17.6 % (11.0-16.0); White Blood Count 8.2 X10*3/uL (4.8-10.8)
[2022-03-16 06:55] LABS: Anion Gap 13 (12-20); Blood Urea Nitrogen 11 mg/dL (9-16); Calcium 8.3 mg/dL (8.4-10.2); Carbon Dioxide 21 mmol/L (22-29); Chloride 110 mmol/L (96-108); Creatinine Clr Calc Pharmacy 77.6; Estimated Glomerular Filt Rate > 60; Glucose Random 64 mg/dL (60-115); Potassium 3.4 mmol/L (3.3-5.1); Sodium 141 mmol/L (135-145)
[2022-03-16 07:28] LABS: Glucose, Whole Blood 76 mg/dL (60-115)
[2022-03-16] MEDS: 0.9 % Sodium Chloride Flush 3 ML SYRINGE IVFLUSH ×2 (07:53→17:02)
--- NOTE | 2022-03-16 08:06 | PC.NURSE ---
Pt resting in bed quietly, call hickman in place. Did not eat breakfast this morning stating it was giving her too much abd pain
--- NOTE | 2022-03-16 08:34 | PHA.MEDREC ---
Pharmacy Consult ? Medication Reconciliation Pharmacy has completed the medication reconciliation. Spoke with patient. Patient states they used to be on cyclobenzaprine 10mgwhich helped their neck and back but they don't have any left
[2022-03-16 11:34] LABS: Glucose, Whole Blood 113 mg/dL (60-115)
--- NOTE | 2022-03-16 12:36 | MHC.CM.PN ---
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
[2022-03-16] MEDS: Acetaminophen 325 MG TABLET 650 MG PO (13:09)
[2022-03-16] MEDS: busPIRone HCl 10 MG TABLET PO ×2 (13:10→21:29)
[2022-03-16] MEDS: DULoxetine HCl 60 MG CAPSULE.DR PO (13:10)
[2022-03-16 14:33] LABS: Glucose, Whole Blood 100 mg/dL (60-115)
--- NOTE | 2022-03-16 16:35 | PC.NURSE ---
Pt ambulates to bathroom with steady gait, has had no episodes of diarrhea since this morning. Resting quietly in bed, call hickman within reach
[2022-03-16 19:32] LABS: Glucose, Whole Blood 92 mg/dL (60-115)
[2022-03-16 21:42] LABS: Glucose, Whole Blood 101 mg/dL (60-115)
[2022-03-17] MEDS: 0.9 % Sodium Chloride Flush 3 ML SYRINGE IVFLUSH (01:29)
[2022-03-17] MEDS: Melatonin 3 MG TABLET 6 MG PO (02:19)
[2022-03-17] MEDS: LORazepam 1 MG TABLET PO (02:19)
[2022-03-17] MEDS: Enoxaparin Sodium 40 MG/0.4 ML SYRINGE SUBCUT (02:20)
[2022-03-17 06:35] VITALS: BP 129/64; PULSE 89; RESP 14; TEMP 37.1; O2SAT 96
--- NOTE | 2022-03-17 07:12 | PC.NURSE ---
assumed care of patient, pt aox3, calm and cooperative, VSS, awaiting inpt bed
[2022-03-17] MEDS: lisinopriL 40 MG TABLET PO (07:36)
[2022-03-17] MEDS: Levothyroxine Sodium 125 MCG TABLET PO (07:36)
[2022-03-17] MEDS: busPIRone HCl 10 MG TABLET PO (07:36)
[2022-03-17] MEDS: DULoxetine HCl 60 MG CAPSULE.DR PO (07:36)
--- NOTE | 2022-03-17 10:04 | PM.DS ---
DS: Providers Provider Date of Service: 03/17/22 Date of admission: 03/16/22 00:25 Primary care physician: Binh Hernandez MD DS: Diagnosis Discharge Diagnosis (1) Viral gastroenteritis: Status: Acute DS: Summary Hospital Course Hospital Course: Chief Complaint: Nausea/vomiting/diarrhea This is a 67-year-old female with pertinent history of insulin-dependent diabetes mellitus, essential hypertension, mood disorder, hypothyroidism who presents to the emergency department for evaluation of abdominal pain/vomiting/diarrhea.? Patient states she has been having persistent nausea, nonbloody emesis and watery diarrhea which has been persistent and started 24 hours prior to presentation.? It started with epigastric discomfort, nonradiating, constant and without any relieving factors. Patient is unable to tolerate p.o. intake for the last 24 hours.? No similar complaints in the past.? Denies fever, chills, chest discomfort, palpitations, shortness of breath, changes in urinary habits. Hospital course: Patient presented with her signs and symptoms consistent with for acute viral gastroenteritis with some associated abdominal discomfort. She was observed overnight and hydrated with IV fluid given antiemetics and diet has been slowly advanced and is tolerating and at this point does not have any abdominal pain nausea vomiting or diarrhea a CT scan did not show any acute finding. Pulmonary nodule 2.? Incidental note made of a 7 mm left lower lobe lung nodule and a 2 mm left lower lobe nodule. A 7 mm nodule measured 4 mm in 2017. 3.? Markedly heterogeneous liver with asymmetric fatty infiltration. 4.? Other incidental findings as described above including cholecystectomy, nonrotated right kidney and degenerative changes in the spine. ? 2017 Fleischner Society Recommendations for Lung Nodule(s): Follow-Up based on size (average of long- and short-axis diameters). Use most suspicious nodule for followup. ? Single Solid lung nodule 6-8 mm:? In a low-risk patient, recommend a non-contrast Chest CT at 6-12 months, then consider an additional non-contrast Chest CT at 18-24 months.? In a high-risk patient, recommend a non-contrast Chest CT at 6-12 months, then another non-contrast Chest CT at 18-24 months.? Follow up to be arranged by PCP ? Time Spent with Patient Time attestation: Total time managing care of this patient today ____ minutes. Discharge coordination time: Greater than 30 minutes Quality: Safe Use of Opioids Does Pt have an Active Cancer Diagnosis on the Problem List?: No Quality: Stroke Does the patient have a stroke diagnosis?: No Physical Exam Vital Signs: Vital Signs: Last Vital Signs Temp 98.8 F 03/17/22 06:35 Pulse 89 03/17/22 06:35 Resp 14 03/17/22 06:35 BP 129/64 03/17/22 06:35 Pulse Ox 96 03/17/22 06:35 O2 Del Method 03/17/22 06:35 BMI result Body Mass Index 25.0 DS: Data Data Completed and Pending Labs on day of discharge: Laboratory Results - last 24 hr 03/16/22 03/16/22 03/16/22 11:31 14:28 19:12 POC Glucose 113 100 92 03/16/22 21:39 POC Glucose 101 Preliminary micro results at discharge 03/15/22 22:07 Blood Culture - Preliminary Blood - Arterial No growth after 24 hours. 03/15/22 21:40 Blood Culture - Preliminary Blood - Arterial No growth after 24 hours. Discharge Plan Discharge Anticipated Discharge Date/Time: 03/17/22 10:04 Patient Disposition: Home, Self-Care Discharge Diagnosis: Viral gastroenteritis Referrals: Binh Hernandez MD [Primary Care Provider] - 1 Week Discharge Medications: Continued tramadol 50 mg tablet 50 - 100 mg PO QID PRN (Reason: Pain) lisinopril 40 mg tablet 40 mg PO DAILY lorazepam 1 mg tablet 1 mg PO BEDTIME PRN (Reason: Insomnia) insulin glargine [Lantus Solostar U-100 Insulin] 100 unit/mL (3 mL) insulin pen 40 unit subcut BEDTIME insulin lispro [Humalog KwikPen Insulin] 100 unit/mL insulin pen See Protocol subcut TIDWM Protocol: Insulin Correction Scale Less than or equal to 110 ---- Give (units): 0 111 to 150 Give (units): 0 151 to 200 Give (units): 2 201 to 250 Give (units): 4 251 to 300 Give (units): 6 301 to 350 Give (units): 8 Greater than 350 Give (units): 10 Call MD if Blood Glucose > : 350 buspirone 10 mg tablet 10 mg PO BID levothyroxine 125 mcg tablet 125 mcg PO DAILY (DME) pen needle, diabetic [BD Ultra-Fine Short Pen Needle] 31 gauge x 5/16 needle See Rx Instructions .ROUTE QID Qty: 1200 Rx Instructions: As directed (DME) FreeStyle Lite Strips Strip See Rx Instructions .ROUTE TID Qty: 10 Rx Instructions: As directed glimepiride 2 mg tablet 2 mg PO DAILY duloxetine 60 mg capsule,delayed release(DR/EC) 60 mg PO DAILY (DME) lancets [FreeStyle Lancets] 28 gauge misc See Rx Instructions .ROUTE TID Qty: 100 Rx Instructions: As directed Discharge Orders: Discharge Order (Routine); Ordered 03/17/22 Ordered By: Crow Ortiz Diet: Diabetic diet Activity on Discharge: As tolerated Stand Alone Forms: Patient Portal Discharge page Care Plan Goals: Full recovery from viral gastroenteritis Health Concerns: Viral gastroenteritis Plan of Treatment: Drink plenty of fluid common resume p.o. medications as usual, follow-up with your doctor in a few weeks Ask your doctor to arrange for follow up Chest CT for lung nodule Assessment: As above Discharge Date/Time: 03/17/22 10:57
--- NOTE | 2022-03-17 10:48 | MHC.CM.PN ---
PT WILL DC HOME TODAY WITH RESUMPTION OF TRIMMING MACHINE SET UP [employer]PERATOR SERVICES FAMILY TO TRANSPORT
--- NOTE | 2022-03-18 09:39 | MHC.CDI.RETR ---
Retrospective Query PHYSICIAN'S DOCUMENTATION REQUEST Date of Query: 03/18/22 0940 Patient Name: Mini Virgen Admit Date: 03/16/22 Dear Doctor, A review of the medical record indicates additional documentation may be needed. Please review below and update the documentation accordingly. Clinical Indicators: Risk Factors/Clinical Indicators/Treatments ED: 03/16 - WBC 15.1 LA 4.3 HR 135 RR 22 BP 125/56 L Fever, vomiting, nausea, diarrhea, body aches, IV fluids, Ceftriaxone. Sepsis alert called, 2 L of fluid given. H&P - Sepsis due to viral gastroenteritis, resolved. Admit inpatient anticipate 2 night admit in setting of sepsis. Please clarify which of the following most accurately describes the above abnormalities: Sepsis Sepsis due to viral gastroenteritis, resolved, poa, etc. Systemic manifestations of infection, with 2 or more SIRS criteria which include: -Fever > 100.4F or hypothermia < 96.8 F -Leukocytosis - WBC > 12,000 or leukopenia, WBC < 4,000 or > 10% bands -Tachycardia > 90 beats/minute -Tachypnea - RR > 20 breaths Indicate the knows or suspected organism Indicate the known or suspected underlying infection, such as UTI, pneumonia, or cellulitis Indicate if a suspected bacteria infection of unknown source Other Unable to determine Use of terms such as suspected, likely, concern for, or probable (associated with a specific diagnosis that is being evaluated, monitored, or treated as if it exists) are acceptable and can be coded in the inpatient setting, when documented at the time of discharge. Thank you, Santa Yuan [facility] Extension: [phone] Please use your independent medical judgment in providing your response. THIS QUERY IS PART OF THE PERMANENT MEDICAL RECORD
== END 2022-03-17 10:57 | disposition home or self-care (01) | DRG 392 ==
LOC: HO.ED 03-16 00:25 → HO.EDOVER 03-16 00:30 → HO.IMC 03-17 08:45 → HO.EDOVER 03-17 08:52
PROVIDERS: Nurse Practitioner Family; Admitting Provider Student in an Organized Health Care Education/Training Program; Emergency Provider Internal Medicine; PCP Internal Medicine; Visit Provider Internal Medicine
DX: A08.4 Viral intestinal infection, unspecified (principal); E87.21 Acute metabolic acidosis; F41.9 Anxiety disorder, unspecified; F32.A Depression, unspecified; M79.7 Fibromyalgia; I10 Essential (primary) hypertension; E03.9 Hypothyroidism, unspecified; E11.65 Type 2 diabetes mellitus with hyperglycemia; Z20.822 Contact with and (suspected) exposure to COVID-19; Z79.4 Long term (current) use of insulin; Z79.84 Long term (current) use of oral hypoglycemic drugs; Z79.899 Other long term (current) drug therapy
CPT/HCPCS: 0241U; 36415; 71250; 74176; 80048; 80053; 81001; 82947; 83605; 83690; 83735; 84443; 84484; 85025; 87040; 93005; 99285; J0696; J1650; J2405

== ENCOUNTER 2022-04-04 11:39 | Outpatient (REF) | payer MEDICARE, MEDICAID, SELFPAY ==
[2022-04-04 12:56] LABS: MANUAL DIFF FLAG NO
[2022-04-04 13:05] LABS: Basophils Percent Auto 0.4 % (0-2); Eosinophils Absolute Auto 0.2 X10*3/uL (0.0-0.4); Eosinophils Percent Auto 2.4 % (0-4); Hematocrit 41.7 % (37.0-47.0); Hemoglobin 11.7 g/dl (12.0-16.0); Imm Gran Abs Auto 0.02 X10*3/uL (0.00-0.03); Imm Gran Pct Auto 0.2 % (0.0-0.4); Lymphocytes Percent Auto 20.8 % (20-40); Mean Corpuscular HGB Conc 28.1 g/dl (31.0-35.0); Mean Corpuscular Hemoglobin 21.1 pg (27.0-33.0); Mean Corpuscular Volume 75.1 fL (80.0-98.0); Mean Platelet Volume 10.8 fL (9.4-12.3); Monocytes Absolute Auto 0.6 X10*3/uL (0.1-1.2); Monocytes Percent Auto 6.8 % (2-11); Neutrophils Absolute Auto 6.6 x10*3/uL (2.0-8.3); Neutrophils Percent Auto 69.4 % (45-73); Platelet Count 418 X10*3/uL (160-400); Red Blood Count 5.55 X10*6/uL (4.20-5.50); Red Cell Distribution Width 17.3 % (11.0-16.0); White Blood Count 9.4 X10*3/uL (4.8-10.8)
[2022-04-04 13:34] LABS: Alanine Aminotransferase 16 U/L (0-31); Albumin Level 3.9 g/dL (3.5-5.0); Alkaline Phosphatase 130 U/L (39-117); Anion Gap 12 (12-20); Aspartate Amino Transferase 14 U/L (5-31); Bilirubin Total 0.2 mg/dL (0.0-1.0); Blood Urea Nitrogen 11 mg/dL (9-16); Calcium 9.3 mg/dL (8.4-10.2); Carbon Dioxide 26 mmol/L (22-29); Chloride 104 mmol/L (96-108); Estimated Glomerular Filt Rate > 60; Glucose Random 170 mg/dL (60-115); Sodium 138 mmol/L (135-145); Total Protein 7.1 g/dL (6.5-8.0)
[2022-04-04 13:43] LABS: Vitamin D 25-OH Total 13.4 ng/mL (>30)
[2022-04-04 16:20] LABS: Estimated Average Glucose 183 mg/dL
== END 2022-04-04 11:40 | disposition home or self-care (01) ==
LOC: HO.MANLDS 11:39
PROVIDERS: Visit Provider Internal Medicine
DX: E11.9 Type 2 diabetes mellitus without complications (principal); I10 Essential (primary) hypertension; E55.9 Vitamin D deficiency, unspecified
CPT/HCPCS: 36415; 80053; 82306; 83036; 85025

== ENCOUNTER 2022-09-24 15:27 | Outpatient (REF) | payer MEDICARE, MEDICAID, SELFPAY ==
[2022-09-24 18:04] LABS: Alanine Aminotransferase 17 U/L (0-31); Albumin Level 3.9 g/dL (3.5-5.0); Alkaline Phosphatase 117 U/L (39-117); Anion Gap 11 (12-20); Aspartate Amino Transferase 15 U/L (5-31); Bilirubin Total 0.2 mg/dL (0.0-1.0); Blood Urea Nitrogen 12 mg/dL (9-16); Calcium 9.3 mg/dL (8.4-10.2); Carbon Dioxide 30 mmol/L (22-29); Chloride 99 mmol/L (96-108); Estimated Glomerular Filt Rate > 60; Glucose Random 254 mg/dL (60-115); Potassium 4.2 mmol/L (3.3-5.1); Sodium 136 mmol/L (135-145); Total Protein 7.8 g/dL (6.5-8.0)
[2022-09-24 18:20] LABS: Thyroid Stimulating Hormone 20.27 uIU/mL (0.32-4.0)
[2022-09-25 05:23] LABS: Estimated Average Glucose 240 mg/dL
== END 2022-09-24 15:28 | disposition home or self-care (01) ==
LOC: HO.MANLDS 15:27
PROVIDERS: Visit Provider Internal Medicine
DX: E03.9 Hypothyroidism, unspecified (principal); E11.9 Type 2 diabetes mellitus without complications
CPT/HCPCS: 36415; 80053; 83036; 84443

== ENCOUNTER 2022-11-06 15:13 | Outpatient (REF) | payer MEDICARE, MEDICAID, SELFPAY ==
--- NOTE | ~2022-11-06 | MM_ITS ---
EXAMINATION: MM SCREENING DIGITAL BREAST TOMOSYNTHESIS, BILATERAL CLINICAL INFORMATION: Screening. Asymptomatic. COMPARISON: Mammography: This study is compared with prior exams dating back to 2015. There are no interval examinations. TECHNIQUE: Digital breast tomosynthesis is performed in both the craniocaudal and mediolateral oblique views along with computer-aided detection (CAD). Synthesized 2D images are generated from the tomosynthesis. FINDINGS: There are scattered areas of fibroglandular density (ACR BI-RADS breast composition Category b). There are no significant masses, abnormal calcifications, or other abnormalities. MM/MM tomosynthesis screening BI IMPRESSION: No mammographic evidence of malignancy. ASSESSMENT: BI-RADS BI-RADS 1 - Negative RECOMMENDATION: Routine annual mammography screening. 1 year F/U This examination should not preclude the clinical evaluation of a suspicious palpable abnormality. This patient's information was entered into a reminder system with a target due date for their next mammogram.
== END 2022-11-06 15:14 | disposition home or self-care (01) ==
LOC: HO.MAMMO 15:13
PROVIDERS: PCP Internal Medicine; Visit Provider Internal Medicine
DX: Z12.31 Encounter for screening mammogram for malignant neoplasm of breast (principal)
CPT/HCPCS: 77063; 77067

== ENCOUNTER → 2022-11-06 16:00 | Outpatient (BNV) | payer MEDICARE, MEDICAID, SELFPAY | PROVIDERS: PCP Internal Medicine; Visit Provider Radiology Diagnostic Radiology | DX: Z12.31 Encounter for screening mammogram for malignant neoplasm of breast (principal) | CPT/HCPCS: 77063; 77067 ==

== ENCOUNTER 2023-02-11 09:08 | Outpatient (REF) | payer MEDICARE, MEDICAID, SELFPAY | END 2023-02-11 09:09 | disposition home or self-care (01) | LOC: HO.LAB 09:08 | PROVIDERS: PCP Internal Medicine; Visit Provider Internal Medicine | DX: E11.9 Type 2 diabetes mellitus without complications (principal) | CPT/HCPCS: 36415; 80053; 80061; 83036 ==

== ENCOUNTER 2023-04-29 11:19 | Outpatient (REF) | payer OTHER, SELFPAY ==
[2023-04-29 13:14] LABS: Estimated Average Glucose 206 mg/dL; Hemoglobin A1c % 8.8 % (<6.0)
[2023-04-29 13:47] LABS: Alanine Aminotransferase 39 U/L (0-31); Albumin Level 3.7 g/dL (3.5-5.0); Alkaline Phosphatase 103 U/L (39-117); Anion Gap 12 (12-20); Aspartate Amino Transferase 35 U/L (5-31); Bilirubin Total 0.2 mg/dL (0.0-1.0); Blood Urea Nitrogen 15 mg/dL (9-16); Calcium 8.7 mg/dL (8.4-10.2); Carbon Dioxide 26 mmol/L (22-29); Chloride 104 mmol/L (96-108); Estimated Glomerular Filt Rate > 60; Glucose Random 189 mg/dL (60-115); Sodium 138 mmol/L (135-145)
[2023-04-29 13:57] LABS: Free T4 (Free Thyroxine) 1.39 ng/dL (0.71-1.85); Thyroid Stimulating Hormone 0.03 uIU/mL (0.32-4.0)
== END 2023-04-29 11:20 | disposition home or self-care (01) ==
LOC: HO.MANLDS 11:19
PROVIDERS: Visit Provider Internal Medicine
DX: E03.9 Hypothyroidism, unspecified (principal); E11.9 Type 2 diabetes mellitus without complications
CPT/HCPCS: 36415; 80053; 83036; 84439; 84443

== ENCOUNTER 2024-08-22 10:04 | Outpatient (REF) | payer OTHER, SELFPAY ==
[2024-08-22 10:17] LABS: MANUAL DIFF FLAG NO
--- OUTSIDE RECORDS SUMMARY | 2024-08-22 10:47 | XMS_ITS | Clinical Summary ---
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 Name Role Phone Unavailable Primary Care Provider Unavailabl e Social History Tobacco Use Types Packs/Day Years Used Date Smoking Tobacco: Never Assessed Comments Unknown Sex and Gender Information Value Date Recorded Sex Assigned at Not on file Legal Sex Female 2:34 PM EDT Gender Identity Not on file Sexual Orientation Not on file Plan of Treatment Health Maintenance Due Date Last Done Comments Breast Cancer Screening 1955 Colorectal Cancer Screening: Annual FOBT 2006 Colorectal Cancer Screening: Colonoscopy 2006 Colorectal Cancer Screening: Sigmoidoscopy 2006 Pneumococcal Vaccine: 50+ Ye ars (1 of 1 - PCV) 2007 Influenza Vaccine (#1) 2024 Hepatitis B Vaccine Aged Out No longe r eligible based on patient's age to complete this topic Insurance [place]
[2024-08-22 11:01] LABS: Hematocrit 40.8 % (37.0-47.0); Hemoglobin 11.3 g/dl (12.0-16.0); Imm Gran Abs Auto 0.04 X10*3/uL (0.00-0.03); Imm Gran Pct Auto 0.4 % (0.0-0.4); Lymphocytes Absolute Auto 3.1 X10*3/uL (1.2-4.9); Mean Corpuscular HGB Conc 27.7 g/dl (31.0-35.0); Mean Corpuscular Hemoglobin 20.3 pg (27.0-33.0); Mean Corpuscular Volume 73.4 fL (80.0-98.0); NRBC Abs Auto 0.000 X10*3/uL (0.0-0.012); NRBC Pct Auto 0.0 /100WBC (0.0-0.2); Platelet Count 335 X10*3/uL (160-400); Red Blood Count 5.56 X10*6/uL (4.20-5.50); White Blood Count 11.4 X10*3/uL (4.8-10.8)
[2024-08-22 11:09] LABS: Hemoglobin A1C 267.1473 umol/L; Total Hemoglobin (HGBA1C) 2991.0548 umol/L
[2024-08-22 11:58] LABS: Alanine Aminotransferase 14 U/L (0-31); Albumin Level 3.9 g/dL (3.5-5.0); Alkaline Phosphatase 108 U/L (39-117); Anion Gap 13 (12-20); Aspartate Amino Transferase 28 U/L (5-31); Blood Urea Nitrogen 13 mg/dL (9-16); Calcium 9.0 mg/dL (8.4-10.2); Carbon Dioxide 25 mmol/L (22-29); Chloride 107 mmol/L (96-108); Estimated Glomerular Filt Rate > 60; Potassium 4.4 mmol/L (3.3-5.1); Sodium 141 mmol/L (135-145); Total Protein 7.4 g/dL (6.5-8.0)
[2024-08-22 12:26] LABS: Thyroid Stimulating Hormone 0.15 uIU/mL (0.32-4.0)
== END 2024-08-22 10:05 | disposition home or self-care (01) ==
LOC: HO.LABR 10:04
PROVIDERS: PCP Internal Medicine; Visit Provider Internal Medicine
DX: I10 Essential (primary) hypertension (principal); E03.9 Hypothyroidism, unspecified; E11.9 Type 2 diabetes mellitus without complications
CPT/HCPCS: 36415; 80053; 82306; 83036; 84443; 85025